=== PATIENT | female | born 1985 | race American Indian/Alaskan Native ===

== ENCOUNTER 2018-01-29 10:16 | Outpatient (CLI) | payer MEDICAID ==
--- NOTE | 2018-01-29 10:58 | Ultrasound Report ---
LEFT BREAST ULTRASOUND: 01/29/18 10:16:00 CLINICAL: 32 year-old with left breast pain. COMPARISON: None. FINDINGS: Ultrasound of the left breast(including all four quadrants and the retroareolar area) was performed and demonstrated normal fibroglandular and fatty structures. No mass, cyst or shadowing. IMPRESSION: Normal left breast ultrasound. BI-RADS 1 - - Negative RECOMMENDATION: Clinical followup and mammographic screening based on ACS guidelines.
== END 2018-01-29 10:17 | disposition home or self-care (01) ==
LOC: SPVWC 10:16
PROVIDERS: ATTEND Family Medicine
DX: N64.4 Mastodynia (principal)

== ENCOUNTER 2018-10-23 22:32 | Emergency (ER) | payer MEDICAID ==
[2018-10-24 00:14] LABS: Bilirubin,Urine NEG (Negative); Blood,Urine LG (Negative); Color,Urine Red (Yellow); Urobilinogen,Urine < 2.0 mg/dL (<2.0)
[2018-10-24] MEDS ORDERED: TYLENOL PO ONE (00:14)
--- NOTE | 2018-10-24 00:21 | Emergency Department Report ---
ED Female HPI - General Chief complaint: Abdominal Pain Stated complaint: 9WKS PREG/CRAMPING/HEAVY BLEEDING Time Seen by Provider: 10/23/18 23:56 Source: patient Mode of arrival: Ambulatory Limitations: No Limitations - History of Present Illness Initial comments: Mrs. Woody is a 33-year-old female who is currently 9 weeks estimated due date 05/27/2019. Had normal US at 7 weeks. Has had severe abdominal pain pelvic cramping with copious vaginal bleeding. Vaginal bleeding heavier than menstrual flow. Primary brick tender Dr. Singh. She plans to deliver baby at [facility]. pain 9/10 initially now 8/10 Has 2 healthy children, 2 previous miscarriages MD Complaint: vaginal bleeding -: Gradual, days(s) (1) Severity: severe Severity scale (0 -10): 9 Quality: cramping Consistency: now resolved Improves with: other (time) Worsens with: none Are you Now?: Yes Associated Symptoms: vaginal bleeding - Related Data Previous Rx's Medication Instructions Recorded Last Taken Type Ibuprofen [Motrin 800 MG tab] 800 mg PO Q6H PRN #20 tablet 10/24/18 Unknown Rx Allergies Allergy/AdvReac Type Severity Reaction Status Date / Time No Known Allergies Allergy Verified 05/12/14 21:04 ED Review of Systems ROS: Stated complaint: 9WKS PREG/CRAMPING/HEAVY BLEEDING Other details as noted in HPI Comment: All other systems reviewed and negative Constitutional: denies: fever, malaise Respiratory: denies: cough Cardiovascular: denies: chest pain Gastrointestinal: abdominal pain. denies: nausea, vomiting ED Past Medical Hx - Past Medical History Previous Medical History?: No Hx Hypertension: No Hx Diabetes: No Hx Deep Vein Thrombosis: No Hx Renal Disease: No Hx Sickle Cell Disease: No Hx Seizures: No Hx Asthma: No Hx HIV: No - Surgical History Past Surgical History?: No - Social History Smoking Status: Never Smoker Substance Use Type: None - Medications Home Medications: Home Medications Medication Instructions Recorded Confirmed Last Taken Type Ibuprofen [Motrin 800 MG tab] 800 mg PO Q6H PRN #20 tablet 10/24/18 Unknown Rx ED Physical Exam - General Limitations: No Limitations General appearance: alert, in no apparent distress - Head Head exam: Present: atraumatic, normocephalic - Eye Eye exam: Present: normal appearance - ENT ENT exam: Present: mucous membranes moist - Neck Neck exam: Present: normal inspection, full ROM. Absent: tenderness, meningismus - Respiratory Respiratory exam: Present: normal lung sounds bilaterally. Absent: respiratory distress, wheezes, rales - Cardiovascular Cardiovascular Exam: Present: regular rate, normal rhythm, normal heart sounds. Absent: bradycardia, tachycardia, systolic murmur, diastolic murmur, rubs, gallop - GI/Abdominal GI/Abdominal exam: Present: soft, normal bowel sounds. Absent: distended, tenderness, guarding, rebound - Extremities Exam Extremities exam: Present: normal inspection - Neurological Exam Neurological exam: Present: alert, oriented X3 - Psychiatric Psychiatric exam: Present: normal affect, normal mood - Skin Skin exam: Present: warm, dry, intact, normal color. Absent: rash ED Course Vital Signs 10/23/18 10/23/18 10/24/18 22:51 23:17 00:00 Temperature 98.5 F Pulse Rate 98 H 82 Respiratory 14 13 Rate Blood Pressure 132/91 119/69 109/65 O2 Sat by Pulse 100 95 99 Oximetry 10/24/18 01:36 Temperature Pulse Rate Respiratory 18 Rate Blood Pressure O2 Sat by Pulse 99 Oximetry ED Medical Decision Making - Lab Data Result diagrams: 10/24/18 00:11 10/24/18 00:00 Laboratory Results - last 24 hr 10/23/18 10/24/18 10/24/18 23:16 00:00 00:00 WBC RBC Hgb Hct MCV MCH MCHC RDW Plt Count Lymph % (Auto) Piute % (Auto) Eos % (Auto) Baso % (Auto) Lymph # Piute # Eos # Baso # Seg Neutrophils % Seg Neutrophils # Sodium 136 L Potassium 4.4 Chloride 105.1 Carbon Dioxide 21 L Anion Gap 14 BUN 12 Creatinine 0.7 Estimated GFR > 60 BUN/Creatinine Ratio 17 Glucose 93 Calcium 9.3 Total Bilirubin < 0.20 AST 21 ALT 18 Alkaline Phosphatase 56 Total Protein 6.9 Albumin 4.0 Albumin/Globulin Ratio 1.4 HCG, Quant 3492 H Urine Color Red Urine Turbidity Cloudy Urine pH 5.0 Ur Specific Brinkley 1.018 Urine Protein 30 mg/dl Urine Glucose (UA) Neg Urine Ketones Neg Urine Blood Lg Urine Nitrite Neg Urine Bilirubin Neg Urine Urobilinogen < 2.0 Ur Leukocyte Esterase Tr Urine WBC (Auto) 57.0 H Urine RBC (Auto) > 182.0 U Epithel Cells (Auto) 5.0 10/24/18 00:11 WBC 7.2 RBC 3.78 Hgb 11.3 Hct 32.4 MCV 86 MCH 30 MCHC 35 H RDW 15.8 H Plt Count 238 Lymph % (Auto) 31.3 Piute % (Auto) 7.1 Eos % (Auto) 3.4 Baso % (Auto) 0.8 Lymph # 2.3 Piute # 0.5 Eos # 0.2 Baso # 0.1 Seg Neutrophils % 57.4 Seg Neutrophils # 4.2 Sodium Potassium Chloride Carbon Dioxide Anion Gap BUN Creatinine Estimated GFR BUN/Creatinine Ratio Glucose Calcium Total Bilirubin AST ALT Alkaline Phosphatase Total Protein Albumin Albumin/Globulin Ratio HCG, Quant Urine Color Urine Turbidity Urine pH Ur Specific Brinkley Urine Protein Urine Glucose (UA) Urine Ketones Urine Blood Urine Nitrite Urine Bilirubin Urine Urobilinogen Ur Leukocyte Esterase Urine WBC (Auto) Urine RBC (Auto) U Epithel Cells (Auto) - Radiology Data Radiology results: report reviewed Spontaneous without products of conception - Medical Decision Making Incomplete . RhoGAM not indicated in the first trimester. ABOwas not tested. Discharged home with counseling and resources. Encouraged to follow up with her primary brick tender tomorrow. Critical care attestation.: If time is entered above; I have spent that time in minutes in the direct care of this critically ill patient, excluding procedure time. ED Disposition Clinical Impression: Incomplete Disposition: DC-01 TO HOME OR SELFCARE Is pt being admited?: No Does the pt Need Aspirin: No Condition: Stable Instructions: Spontaneous Miscarriage (ED) Additional Instructions: Please see DR. Singh tomorrow. Prescriptions: Ibuprofen [Motrin 800 MG tab] 800 mg PO Q6H PRN #20 tablet PRN Reason: Pain , Severe (7-10)
[2018-10-24 00:22] LABS: RBC,Urine > 182.0 /HPF (0.0-6.0)
[2018-10-24 00:24] LABS: Basophils # (Auto) 0.1 K/mm3 (0.0-0.1); Basophils % (Auto) 0.8 % (0.0-1.8); Eosinophils # (Auto) 0.2 K/mm3 (0.0-0.4); Eosinophils % (Auto) 3.4 % (0.0-4.3); Hematocrit 32.4 % (30.3-42.9); Hemoglobin 11.3 gm/dl (10.1-14.3); Lymphocytes # (Auto) 2.3 K/mm3 (1.2-5.4); Lymphocytes % (Auto) 31.3 % (13.4-35.0); Mean Corpuscular HGB Conc 35 % (30-34); Mean Corpuscular Volume 86 fl (79-97); Monocytes # (Auto) 0.5 K/mm3 (0.0-0.8); Monocytes % (Auto) 7.1 % (0.0-7.3); Platelet Count 238 K/mm3 (140-440); Red Blood Count 3.78 M/mm3 (3.65-5.03); Red Cell Distribution Width 15.8 % (13.2-15.2)
[2018-10-24 00:47] LABS: Alanine Aminotransferase 18 units/L (7-56); BUN/Creatinine Ratio 17; Blood Urea Nitrogen 12 mg/dL (7-17); Calcium 9.3 mg/dL (8.4-10.2); Hemolysis Index 2
[2018-10-24 01:24] VITALS: BP 109/65
--- NOTE | 2018-10-24 01:31 | Ultrasound Report ---
ULTRASOUND OBSTETRIC INDICATION / CLINICAL INFORMATION: 9weeks preg, with vaginal bleeding. Clinical Gestational Age (GA): Approximately 9 weeks TECHNIQUE: Transabdominal. COMPARISON: None available. FINDINGS: The uterus is enlarged measuring 10.9 x 6.0 x 5.9 cm. Endometrium is markedly thickened and markedly heterogeneous in appearance. Endometrial thickness is 2.4 cm. There is no gestational sac identified within the uterus. ADNEXA: Both ovaries are visualized and appear unremarkable. No adnexal mass.. FREE FLUID: None. ADDITIONAL FINDINGS: None. IMPRESSION: 1. Markedly thickened and heterogeneous endometrium. The most likely etiology is spontaneous abortio n with hemorrhage. I cannot entirely exclude the possibility of retained products of conception. Gest ational trophoblastic disease is within the differential as well, although thought to be much less li richard. 2. No adnexal mass or free fluid. 3. No evidence for gestational sac within the uterus. Signer Name: Lu Decker MD Signed: 10/24/2018 1:27 AM Workstation Name: [id number]
[2018-10-24] MEDS ORDERED: IBUPROFEN PO ONE (01:43)
== END 2018-10-24 02:16 | disposition home or self-care (01) ==
LOC: ED 22:32
DX: O03.4 Incomplete spontaneous abortion without complication (principal)
CPT/HCPCS: 36415; 76801; 80053; 81001; 84702; 85025; 86900; 86901; 87086